=== PATIENT | female | born 1955 | race American Indian/Alaskan Native ===

== ENCOUNTER 2017-07-14 06:57 | Day surgery (SDC) | payer MEDICARE ==
[2017-07-14] MEDS: Lactated Ringer's 500 ML IV ONE ×2 (10:12→10:56)
[2017-07-14] MEDS ORDERED: Propofol 10 mg/ml Inj (20 ML) ONE (10:17)
[2017-07-14] MEDS ORDERED: Lactated Ringer's 500 ML IV SCH (10:30)
[2017-07-14] MEDS ORDERED: Etomidate 20 mg/10ml Inj IV ONE (10:45)
[2017-07-14] MEDS ORDERED: ePHEDrine 50 mg/ml Inj ONE (10:47)
[2017-07-14 11:21] VITALS: O2SAT 100
[2017-07-14 14:06] VITALS: BP 121/79; PULSE 79; RESP 18; TEMP 97.2
== END 2017-07-14 12:20 | disposition home or self-care (01) ==
LOC: C.ENDO 06:57
PROVIDERS: ATTEND Internal Medicine Gastroenterology
DX: D12.0 Benign neoplasm of cecum (principal); R63.4 Abnormal weight loss; D12.5 Benign neoplasm of sigmoid colon; K44.9 Diaphragmatic hernia without obstruction or gangrene; K29.50 Unspecified chronic gastritis without bleeding; D12.4 Benign neoplasm of descending colon

== ENCOUNTER 2018-05-22 20:02 | Inpatient (IN) | payer MEDICARE ==
--- NOTE | 2018-05-22 22:04 | C.PDOC ---
History Of Present Illness 62 y/o female presents to ED for complaints of left foot swelling that began 2 weeks ago. Patient states the swelling has gradually worsened. Patient states she has been soaking if with epsom salt with no relief. Denies any other physical complaints. Time Seen by Provider: 05/22/18 21:58 Chief Complaint (Nursing): Lower Extremity Problem/Injury History Per: Patient History/Exam Limitations: no limitations Onset/Duration Of Symptoms: Days (14) Current Symptoms Are (Timing): Still Present Recent travel outside of the [place]: No Past Medical History Reviewed: Historical Data, Nursing Documentation, Vital Signs Vital Signs: Last Vital Signs Temp 97.8 F 05/22/18 20:28 Pulse 86 05/22/18 20:28 Resp 16 05/22/18 20:28 BP 146/84 05/22/18 20:28 Pulse Ox 95 05/22/18 23:42 - Medical History PMH: Arthritis - [facility] Procedures PACKED CELL TRANSFUSION (12/05/14) VULVAR BIOPSY (12/05/14) Family History: States: Unknown Family Hx - Social History Hx Tobacco Use: No Hx Alcohol Use: Yes (socially) Hx Substance Use: No - Immunization History Hx Influenza Vaccination: No Hx Pneumococcal Vaccination: No Review Of Systems Constitutional: Negative for: Fever, Chills Gastrointestinal: Negative for: Nausea, Vomiting, Abdominal Pain, Diarrhea Skin: Positive for: Other (Left foot swelling). Negative for: Rash Neurological: Negative for: Weakness, Numbness Physical Exam - Physical Exam Appears: Well, Non-toxic, No Acute Distress Skin: Normal Color, Warm, Dry Head: Atraumatic, Normacephalic Eye(s): bilateral: Normal Inspection, PERRL, EOMI Oral Mucosa: Moist Chest: Symmetrical, No Tenderness Cardiovascular: Rhythm Regular, No Murmur Respiratory: Normal Breath Sounds, No Decreased Breath Sounds, No Rales, No Rhonchi, No Wheezing Extremity: Normal ROM, Other (Erythema and edema of left foot ) Neurological/Psych: Oriented x3, Normal Speech Gait: Steady ED Course And Treatment - Laboratory Results Result Diagrams: 05/22/18 23:50 05/22/18 23:50 Lab Interpretation: Normal ECG: Interpreted By Me ECG Rhythm: Sinus Rhythm ECG Interpretation: Normal Rate From EC O2 Sat by Pulse Oximetry: 95 (RA) Pulse Ox Interpretation: Normal - Radiology CXR: Interpreted by Me CXR Interpretation: Yes: No Acute Disease - Other Rad L foot X-Ray: Interpreted by Me (no fx/disloc, periosteal lifting, no SQ gas) Reevaluation Time: 00:17 Reassessment Condition: Improved - Physician Consult Information Outcome Of Conversation: 0015: d/w Dr. Hogan, Hospitalist covering pt's for Dr. Hermosillo, ok to admit. Medical Decision Making Medical Decision Making: Administered vamcomycin and piperacillin. Ordered EKG, blood work, CXR, and X-Ray of left foot. Disposition Doctor Will See Patient In The: Hospital Counseled Patient/Family Regarding: Studies Performed, Diagnosis - Disposition Disposition: HOSPITALIZED Disposition Time: 00:21 Condition: GOOD Forms: [email or web address] (Welsh) - Clinical Impression Clinical Impression: Cellulitis of left foot - Scribe Statement The provider has reviewed the documentation as recorded by the Amandaibshoaib Arellano All medical record entries made by the Scribe were at my direction and personally dictated by me. I have reviewed the chart and agree that the record accurately reflects my personal performance of the history, physical exam, medical decision making, and the department course for this patient. I have also personally directed, reviewed, and agree with the discharge instructions and disposition.
[2018-05-22] MEDS ORDERED: Piperacillin/Tazobact 3.375 gm 100 ML IV STA (22:37)
[2018-05-22] MEDS ORDERED: Vancomycin 1 GM 1 GM/250 ML BAG IV SCH (22:45)
[2018-05-22 23:53] LABS: BASO # 0.1 K/uL (0.0-0.2); HEMOGLOBIN 11.2 g/dL (11.0-16.0); LYMPH % 43.2 % (20.0-40.0); MEAN CELL VOLUME 93.5 fL (81.0-99.0); MEAN CORPUSCULAR HGB CONC 33.1 g/dL (33.0-37.0); MEAN PLATELET VOLUME 8.1 fL (7.2-11.7); MONO # 0.3 K/uL (0.0-0.8); MONO % 6.7 % (0.0-10.0); NEUT # 2.2 K/uL (1.8-7.0); NEUT % 47.1 % (50.0-75.0); RBC 3.61 Mil/uL (3.80-5.20); RED CELL DISTRIBUTION WIDTH 15.3 % (11.5-14.5); WHITE BLOOD COUNT 4.7 K/uL (4.8-10.8)
[2018-05-23] MEDS ORDERED: Piperacillin/Tazobact 3.375 gm 100 ML IVPB ONE (00:25)
[2018-05-23 00:31] LABS: ALB/GLOB RATIO 0.9 (1.0-2.1); ALBUMIN 4.4 g/dL (3.5-5.0); TROPONIN I 0.019 ng/mL (0.00-0.120)
[2018-05-23 01:23] VITALS: RESP 20
--- NOTE | 2018-05-23 01:38 | CP.PCM.HP ---
<Aisha CharltonEstefania - Last Filed: 05/23/18 05:09> History of Present Illness - History of Present Illness History of Present Illness: HPI: Patient is a 62 year old female with a history of anemia and hidradenitis, who presents to the ED with complaints of left foot and ankle swelling. The patient states her symptoms started two Sund ago, and started with left hallux pain. Ther left hallux was painful to touch, painful with movement, and was inflamed. She took Tylenol which relieved the pain. Four days later, she no longer had pain in her great toe, but noticed her left foot and ankle were swelling. She says she wakes up without swelling, but as the day progresses, the swelling worsens. The patient currently denies pain, difficulty walking, fevers, right lower extremity pain/swelling, and only admits to swelling. She denies trauma to the toe, foot, and ankle. Patient's daughter, Caitlin, is at bedside contributing to the history. Per the daughter, the patient slipped in the shower several months ago, but did not complain of pain or swelling at that time. Otherwise, denies trauma. Patient denies chest pain, sob, palpitations, abdominal pain, nausea, vomiting, fevers, headaches. PMD: Dr. 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 FamHx: mother- breast cancer, Alzheimer; father- DM and unknown type of cancer; sister- DM. SocHx: +tobacco use (1/2ppd x 50 years); patient states she drinks vodka on the weekends and denies daily drinking, will not quantify; per the daughter, the patient drinks daily and will drink a quart over 1-2 days if she has the money to buy it; denies drug use; lives with daughter, Caitlin. Allergies: Bactrim- hives Medications: denies, none Present on Admission - Present on Admission Any Indicators Present on Admission: No Review of Systems - Constitutional Constitutional: absent: Chills, Fever, Headache, Weakness - EENT Ears: absent: Dizziness - Cardiovascular Cardiovascular: Leg Edema. absent: Chest Pain, Dyspnea, Palpitations, Rapid Heart Rate - Respiratory Respiratory: absent: Cough, Dyspnea - Gastrointestinal Gastrointestinal: absent: Abdominal Pain, Constipation, Diarrhea, Nausea, Vomiting - Genitourinary Genitourinary: absent: Dysuria, Hematuria, Pyuria - Musculoskeletal Musculoskeletal: absent: Abnormal Gait - Integumentary Integumentary: Swelling (left foot and ankle) - Neurological Neurological: absent: Dizziness, Frequent Falls, Headaches Past Patient History - Past Medical History & Family History Past Medical History?: No - Past Social History Smoking Status: Light Smoker < 10 Cigarettes Daily - CARDIAC Hx Cardiac Disorders: No - PULMONARY Hx Respiratory Disorders: No - NEUROLOGICAL Hx Neurological Disorder: No - HEENT Hx HEENT Problems: No - RENAL Hx Chronic Kidney Disease: No - ENDOCRINE/METABOLIC Hx Endocrine Disorders: No - HEMATOLOGICAL/ONCOLOGICAL Hx Blood Disorders: No - INTEGUMENTARY Hx Dermatological Problems: No - MUSCULOSKELETAL/RHEUMATOLOGICAL Hx Arthritis: Yes - GASTROINTESTINAL Hx Gastrointestinal Disorders: No - GENITOURINARY/GYNECOLOGICAL Hx Genitourinary Disorders: No - PSYCHIATRIC Hx Substance Use: No - SURGICAL HISTORY Hx Surgeries: Yes Other/Comment: HIDRADENITIS OPERATION ON VULVA - ANESTHESIA Hx Anesthesia: Yes Hx Anesthesia Reactions: No Hx Malignant Hyperthermia: No Meds Allergies/Adverse Reactions: Allergies Allergy/AdvReac Type Severity Reaction Status Date / Time sulfamethoxazole Allergy Verified 05/22/18 20:38 [From Bactrim] trimethoprim [From Bactrim] Allergy Verified 05/22/18 20:38 Physical Exam - Constitutional Appears: No Acute Distress - Head Exam Head Exam: NORMAL INSPECTION - Eye Exam Eye Exam: EOMI, PERRL - ENT Exam ENT Exam: Mucous Membranes Moist - Respiratory Exam Respiratory Exam: Clear to Auscultation Bilateral, NORMAL BREATHING PATTERN. absent: Rales, Rhonchi, Wheezes, Respiratory Distress - Cardiovascular Exam Cardiovascular Exam: REGULAR RHYTHM, +S1, +S2 - GI/Abdominal Exam GI & Abdominal Exam: Normal Bowel Sounds, Soft. absent: Distended, Firm, Guarding, Tenderness Additional comments: well healed scar left abdomen s/p colostomy & hidradenitis surgery - Extremities Exam Extremities exam: Positive for: full ROM, pedal edema (left dorsal aspect of foot and ankle), pedal pulses present (Right foot; left foot- faint due to edema ). Negative for: tenderness Additional comments: 5/5 strength intact and sensation intact b/l; no erythematous changes (mild discoloration on left hallux, but not erythematous); equal temperatures bilaterally- warm; no pitting edema in RLE; no lesions noted on LE b/l. - Neurological Exam Neurological exam: Alert, Oriented x3 - Psychiatric Exam Psychiatric exam: Normal Affect, Normal Mood - Skin Skin Exam: Dry, Intact, Warm Results - Vital Signs Recent Vital Signs: Last Vital Signs Temp 97.8 F 05/23/18 01:22 Pulse 63 05/23/18 01:22 Resp 20 05/23/18 01:22 BP 150/89 05/23/18 01:22 Pulse Ox 100 05/23/18 01:22 - Labs Result Diagrams: 05/22/18 23:50 05/22/18 23:50 Labs: Laboratory Results - last 24 hr 05/22/18 05/22/18 23:50 23:50 WBC 4.7 L RBC 3.61 L Hgb 11.2 Hct 33.8 L MCV 93.5 MCH 31.0 MCHC 33.1 RDW 15.3 H Plt Count 317 MPV 8.1 Neut % (Auto) 47.1 L Lymph % (Auto) 43.2 H [place] % (Auto) 6.7 Eos % (Auto) 1.0 Baso % (Auto) 2.0 Neut # (Auto) 2.2 Lymph # (Auto) 2.0 [place] # (Auto) 0.3 Eos # (Auto) 0.0 Baso # (Auto) 0.1 Sodium 146 Potassium 5.8 H Chloride 114 H Carbon Dioxide 17 L Anion Gap 21 H BUN 45 H Creatinine 1.8 H Est GFR ( Amer) 34 Est GFR (Non-Af Amer) 28 Random Glucose 81 Calcium 9.0 Total Bilirubin 0.9 AST 49 H ALT 15 Alkaline Phosphatase 117 Troponin I 0.0190 NT-Pro-B Natriuret Pep 632 Total Protein 9.3 H Albumin 4.4 Globulin 4.9 H Albumin/Globulin Ratio 0.9 L Assessment & Plan (1) Swelling of left foot Assessment and Plan: Left foot edema Cellulitis? Secondary to trauma? Gout? Afebrile, no leukocytosis, no bandemia Xrays: f/u Doppler of LLE: f/u Blood cx: f/u Uric acid: f/u Medications: * In the ED, was given Vanco and Zosyn once * Continue zosyn 2.25g IV Q8h * NS@100mls/hr Status: Acute (2) Acute kidney injury Assessment and Plan: At admission, BUN 45, Cr 1.8; Patient has had elevated BUN at previous admissions Started IV hydration, NS@100mls/hr Follow up morning labs Continue to monitor Status: Acute (3) Hyperkalemia Assessment and Plan: At admission K+ 5.8 Hemolyzed specimen EKG: NSR; no T wave changes Follow up morning labs and continue to monitor Status: Acute (4) Prophylactic measure Assessment and Plan: DVT: no SCDs due to edema and possible cellulitis; heparin 5000u sc q8h GI: not indicated Heart healthy diet Status: Acute <Daniel Hogan - Last Filed: 05/23/18 06:44> Results - Vital Signs Recent Vital Signs: Last Vital Signs Temp 97.4 F L 05/23/18 01:48 Pulse 72 05/23/18 01:48 Resp 20 05/23/18 01:48 BP 149/87 05/23/18 01:48 Pulse Ox 97 05/23/18 01:48 - Labs Result Diagrams: 05/22/18 23:50 05/22/18 23:50 Labs: Laboratory Results - last 24 hr 05/22/18 05/22/18 23:50 23:50 WBC 4.7 L RBC 3.61 L Hgb 11.2 Hct 33.8 L MCV 93.5 MCH 31.0 MCHC 33.1 RDW 15.3 H Plt Count 317 MPV 8.1 Neut % (Auto) 47.1 L Lymph % (Auto) 43.2 H [place] % (Auto) 6.7 Eos % (Auto) 1.0 Baso % (Auto) 2.0 Neut # (Auto) 2.2 Lymph # (Auto) 2.0 [place] # (Auto) 0.3 Eos # (Auto) 0.0 Baso # (Auto) 0.1 Sodium 146 Potassium 5.8 H Chloride 114 H Carbon Dioxide 17 L Anion Gap 21 H BUN 45 H Creatinine 1.8 H Est GFR ( Amer) 34 Est GFR (Non-Af Amer) 28 Random Glucose 81 Calcium 9.0 Total Bilirubin 0.9 AST 49 H ALT 15 Alkaline Phosphatase 117 Troponin I 0.0190 NT-Pro-B Natriuret Pep 632 Total Protein 9.3 H Albumin 4.4 Globulin 4.9 H Albumin/Globulin Ratio 0.9 L Assessment & Plan - Date & Time Date: 05/23/18 (I have seen and examined the patient. I agree with the findings and plan of care as documented by Dr. Charlton. Patient with foot swelling. Suspicious for cellulitis. Vanco and Zosyn given in ED. Continue Zosyn. Denies history of diabetes or neuropathy. Check foot xray. Also with acute kidney injury. Hyperkalemia. May be secondary to dehydration. IVF. Recheck BMP in AM. Monitor for acute changes.) Time: 06:42 Attending/Attestation - Attestation I have personally seen and examined this patient.: Yes I have fully participated in the care of the patient.: Yes I have reviewed all pertinent clinical information: Yes
[2018-05-23] MEDS ORDERED: Sodium Chloride 0.9% 1,000 ML IV SCH (01:45)
[2018-05-23] MEDS ORDERED: Vancomycin 1 gm/NS 200 ml 1 GM/200 ML BAG IVPB SCH ×2 (02:00→03:00)
[2018-05-23] MEDS ORDERED: Piperacillin/Tazobact 2.25 GM in Sodium Chloride 100 ML IVPB SCH (02:00)
[2018-05-23] MEDS: Piperacillin/Tazobact 2.25 GM in Sodium Chloride 100 ML IVPB SCH ×3 (06:38→22:27)
[2018-05-23 07:36] LABS: BASO # 0.1 K/uL (0.0-0.2); BASO % 1.5 % (0.0-2.0); EOS # 0.1 K/uL (0.0-0.7); EOS % 1.5 % (0.0-4.0); HEMOGLOBIN 10.4 g/dL (11.0-16.0); LYMPH # 1.7 K/uL (1.0-4.3); LYMPH % 31.4 % (20.0-40.0); MEAN CELL VOLUME 92.6 fL (81.0-99.0); MEAN CORPUSCULAR HGB CONC 33.5 g/dL (33.0-37.0); MEAN PLATELET VOLUME 7.9 fL (7.2-11.7); MONO # 0.4 K/uL (0.0-0.8); MONO % 7.8 % (0.0-10.0); NEUT # 3.1 K/uL (1.8-7.0); NEUT % 57.8 % (50.0-75.0); NRBC % 0.1 % (0.0-2.0); RBC 3.36 Mil/uL (3.80-5.20); RED CELL DISTRIBUTION WIDTH 14.7 % (11.5-14.5); WHITE BLOOD COUNT 5.3 K/uL (4.8-10.8)
[2018-05-23 07:56] LABS: ALBUMIN 4.5 g/dL (3.5-5.0); CALCIUM 9.6 mg/dl (8.6-10.4)
--- NOTE | 2018-05-23 10:30 | RAD ---
HISTORY: SOB COMPARISON: No prior. TECHNIQUE: Chest PA and lateral FINDINGS: LUNGS: No active pulmonary disease. PLEURA: No significant pleural effusion identified. No pneumothorax apparent. CARDIOVASCULAR: Cardiomediastinal silhouette prominent. OSSEOUS STRUCTURES: Degenerative changes. VISUALIZED UPPER ABDOMEN: Normal. OTHER FINDINGS: None. IMPRESSION: No active disease.
--- NOTE | 2018-05-23 10:45 | RAD ---
PROCEDURE: Left Foot Radiographs. HISTORY: L foot pain/swelling x 2 weeks COMPARISON: None. FINDINGS: BONES: No acute fracture. No periosteal reaction. JOINTS: Unremarkable. SOFT TISSUES: Forefoot soft tissue swelling OTHER FINDINGS: None. IMPRESSION: No demonstrated fracture, dislocation or evidence of periosteal reaction. Distal forefoot soft tissue swelling.
[2018-05-23 11:28] LABS: URIC ACID 9.7 mg/dL (2.2-7.5)
--- NOTE | 2018-05-23 11:28 | VASCLAB ---
PROCEDURE: Left Lower Extremity Venous Duplex Exam. HISTORY: Swelling PRIORS: None. TECHNIQUE: Left common femoral, femoral, popliteal and posterior tibial, peroneal and great saphenous veins were evaluated. Flow was assessed with color Doppler, compressibility, assessment of phasic flow and augmentation response. Report prepared by KERMIT León FINDINGS: LEFT: 1. Common Femoral Vein: 1.1. Compressibility - Fully compressible: Thrombus - None : Flow - Phasic: Augmentation -Normal: Reflux - None. 2. Femoral Vein: 2.1. Compressibility - Fully compressible: Thrombus - None: Flow - Phasic: Augmentation -Normal: Reflux - None. 3. Popliteal Vein: 3.1. Compressibility - Fully compressible: Thrombus - None: Flow - Phasic: Augmentation -Normal: Reflux - None. 4. Posterior Tibial Vein: 4.1. Compressibility - Fully compressible: Thrombus - None: Flow - Phasic: Augmentation -Normal: Reflux - None. 5. Peroneal Vein: 5.1. Compressibility - Fully compressible: Thrombus - None: Flow - Phasic: Augmentation -Normal: Reflux - None. 6. Great Saphenous Vein: 6.1. Compressibility - Fully compressible: Thrombus - None: Flow - Phasic: Augmentation - Normal: Reflux - None. OTHER FINDINGS: IMPRESSION: No evidence of deep or superficial vein thrombosis of the left lower extremity with excellent venous flow. Normal valve function noted of the left side. Normal venous flow noted in the right common femoral vein.
--- NOTE | 2018-05-23 13:36 | CP.PCM.PN ---
<Merced Tovar - Last Filed: 05/23/18 15:30> Subjective - Date & Time of Evaluation Date of Evaluation: 05/23/18 Time of Evaluation: 13:33 - Subjective Subjective: PGY-[address] Patel. Patient was seen and examined today at bedside. Nurse reports no overnight events. Patient describes no new acute problems. Denies chest pain, shortness of breath, abdominal pain, nausea, vomiting, constipation, diarrhea. Objective - Vital Signs/Intake and Output Vital Signs (last 24 hours): Temp Pulse Resp BP Pulse Ox 98.2 F 81 20 152/80 H 97 05/23/18 08:56 05/23/18 08:56 05/23/18 08:56 05/23/18 08:56 05/23/18 08:56 Intake and Output: 05/23/18 05/23/18 06:59 18:59 Intake Total 525 Balance 525 - Medications Medications: Current Medications Heparin Sodium (Porcine) (Heparin) 5,000 units SC Q8 [facility] Last Admin: 05/23/18 06:35 Dose: 5,000 units Piperacillin Sod/Tazobactam (Sod 2.25 gm/ Sodium Chloride) 100 mls @ 200 mls/ hr IVPB Q8H [facility] PRN Reason: Protocol Last Admin: 05/23/18 06:38 Dose: 200 mls/hr Vancomycin/Sodium Chloride (Vancomycin 1 Gm/Ns 200 Ml) 1 gm in 200 mls @ 133 mls/hr IVPB STAT [facility] PRN Reason: Protocol Stop: 05/28/18 03:01 Last Admin: 05/23/18 02:54 Dose: 133 mls/hr Sodium Chloride (Sodium Chloride 0.9%) 1,000 mls @ 100 mls/hr IV .Q10H [facility] Pneumococcal Polyvalent Vaccine (Pneumovax 23 Vaccine) 0.5 ml IM .ONCE ONE Stop: 05/25/18 11:01 - Labs Labs: 05/23/18 07:26 05/23/18 07:26 - Constitutional Appears: Well, No Acute Distress - Head Exam Head Exam: ATRAUMATIC, NORMAL INSPECTION, NORMOCEPHALIC - Eye Exam Eye Exam: EOMI, Normal appearance, PERRL - ENT Exam ENT Exam: Mucous Membranes Moist, Normal Exam - Respiratory Exam Respiratory Exam: Clear to Ausculation Bilateral, NORMAL BREATHING PATTERN - Cardiovascular Exam Cardiovascular Exam: REGULAR RHYTHM, +S1, +S2. absent: Murmur - GI/Abdominal Exam GI & Abdominal Exam: Soft, Normal Bowel Sounds. absent: Tenderness - Extremities Exam Extremities Exam: Full ROM, Normal Capillary Refill, Normal Inspection. absent : Joint Swelling, Pedal Edema Additional comments: except left big toe. erythematous and swollen - Neurological Exam Neurological Exam: Alert, Awake, CN II-XII Intact, Normal Gait, Oriented x3 - Psychiatric Exam Psychiatric exam: Normal Affect, Normal Mood - Skin Skin Exam: Dry, Intact, Normal Color, Warm Additional comments: Left hallux warm, but not hot. Skin otherwise cool to touch. Assessment and Plan - Assessment and Plan (Free Text) Plan: (1) Swelling of left foot Assessment and Plan: Left foot edema Afebrile, no leukocytosis, no bandemia Cellulitis? Secondary to trauma? Gout? Xrays: neg for fracture, dislocation, evidence of periosteal reaction. distal forefoot soft tissue swelling. Doppler of LLE: fully compressible veins along left side. no evidence of deep or superficial vein thrombosis of the lower left extremity with excellent venous flow. normal valve function noted of left side. Normal venous flow noted in the right common femoral vein. Blood cx: f/u, collected, still pending Uric acid: 9.7. repeat for confirmation. Medications: * Continue Zosyn 2.25g IV Q8h * NS@100mls/hr Status: Acute (2) Acute kidney injury Assessment and Plan: Patient has had elevated BUN at previous admissions Continue IV hydration, NS@100mls/hr BUN: 36 today, 45 on admission. Cr: 1.4 today, 1.8 on admission Follow up morning labs Continue to monitor Status: Acute (3) Hyperkalemia Assessment and Plan: resolved. Morning K 4.1. Continue to draw morning labs to monitor. At admission K+ 5.8 Hemolyzed specimen EKG: NSR; no T wave changes Status: Acute (4) Prophylactic measure Assessment and Plan: DVT: no SCDs due to edema and possible cellulitis; heparin 5000u sc q8h GI: not indicated Heart healthy diet Status: Acute Merced Tovar PGY-1. Case discussed with Dr. Patel. <Conrad Patel - Last Filed: 05/24/18 12:24> Objective - Vital Signs/Intake and Output Vital Signs (last 24 hours): Temp Pulse Resp BP Pulse Ox 98.1 F 71 20 159/89 H 99 05/24/18 08:23 05/24/18 08:23 05/24/18 08:23 05/24/18 08:23 05/24/18 08:23 Intake and Output: 05/24/18 05/24/18 06:59 18:59 Intake Total 1840 Balance 1840 - Medications Medications: Current Medications Heparin Sodium (Porcine) (Heparin) 5,000 units SC Q8 [facility] Last Admin: 05/24/18 05:16 Dose: 5,000 units Piperacillin Sod/Tazobactam (Sod 2.25 gm/ Sodium Chloride) 100 mls @ 200 mls/ hr IVPB Q8H [facility] PRN Reason: Protocol Last Admin: 05/24/18 06:05 Dose: 200 mls/hr Sodium Chloride (Sodium Chloride 0.9%) 1,000 mls @ 100 mls/hr IV .Q10H [facility] Last Admin: 05/24/18 11:21 Dose: Not Given Pneumococcal Polyvalent Vaccine (Pneumovax 23 Vaccine) 0.5 ml IM .ONCE ONE Stop: 05/25/18 11:01 - Labs Labs: 05/24/18 06:51 05/24/18 06:51 Attending/Attestation - Attestation I have personally seen and examined this patient.: Yes I have fully participated in the care of the patient.: Yes I have reviewed all pertinent clinical information, including history, physical exam and plan: Yes Notes (Text): seen and examined by me 1.cellulitis-Pain and swelling resolved unlikely gout,Denies history of gout,has history of arthritis,no fever 2.Acute renal failure Plan discussed with the patient,continue hydration,follow cultures,antibiotics I agree with the resident's documentation
[2018-05-23] MEDS: Sodium Chloride 0.9% 1,000 ML IV SCH (16:34)
[2018-05-23 20:18] LABS: SQUAMOUS EPITHIAL < 1 /hpf (0-5); URINE BACTERIA RARE (<OCC); URINE BILIRUBIN NEGATIVE (NEGATIVE); URINE BLOOD NEGATIVE (NEGATIVE); URINE CLARITY Clear (Clear); URINE COLOR Straw (YELLOW); URINE GLUCOSE (UA) NORMAL (Normal); URINE LEUKOCYTE ESTERASE NEG Leu/uL (Negative); URINE PROTEIN NEGATIVE (NEGATIVE); URINE UROBILINOGEN NORMAL mg/dL (0.2-1.0)
--- NOTE | 2018-05-23 23:21 | CARD ---
APPROVED REPORT EKG Measurement Heart [id number] <Conclusion> Normal sinus rhythm Normal ECG
[2018-05-24] MEDS: Sodium Chloride 0.9% 1,000 ML IV SCH ×3 (05:15→11:21)
[2018-05-24] MEDS: Piperacillin/Tazobact 2.25 GM in Sodium Chloride 100 ML IVPB SCH (06:05)
[2018-05-24 06:59] LABS: BASO # 0.1 K/uL (0.0-0.2); BASO % 1.1 % (0.0-2.0); EOS # 0.1 K/uL (0.0-0.7); EOS % 1.8 % (0.0-4.0); HEMOGLOBIN 10.8 g/dL (11.0-16.0); LYMPH # 1.4 K/uL (1.0-4.3); LYMPH % 27.4 % (20.0-40.0); MEAN CORPUSCULAR HEMOGLOBIN 30.8 pg (27.0-31.0); MEAN CORPUSCULAR HGB CONC 33.5 g/dL (33.0-37.0); MEAN PLATELET VOLUME 7.8 fL (7.2-11.7); MONO # 0.5 K/uL (0.0-0.8); MONO % 10.7 % (0.0-10.0); NEUT # 2.9 K/uL (1.8-7.0); RBC 3.52 Mil/uL (3.80-5.20); RED CELL DISTRIBUTION WIDTH 14.7 % (11.5-14.5)
[2018-05-24 07:51] LABS: ALBUMIN 4.1 g/dL (3.5-5.0); ALT/SGPT 20 U/L (9-52); AST/SGOT 30 U/L (14-36); BLOOD UREA NITROGEN 25 mg/dL (7-17); CALCIUM 9.3 mg/dl (8.6-10.4); GFR AFRICAN-AMERICAN > 60; GFR NON-AFRICAN AMERICAN 50; URIC ACID 6.9 mg/dL (2.2-7.5)
[2018-05-24 08:24] VITALS: BP 159/89; PULSE 71; TEMP 98.1; O2SAT 99
--- NOTE | 2018-05-24 09:08 | CP.PCM.DIS ---
<Conrad Patel - Last Filed: 05/24/18 12:24> Provider - Provider Date of Admission: 05/23/18 00:21 Attending physician: Conrad Patel MD Hospital Course - Lab Results Lab Results: Micro Results 05/23/18 00:30 Blood Blood Culture - Preliminary Staphylococcus Sp Coag Neg 05/23/18 00:30 Blood Gram Stain - Final 05/23/18 01:00 Blood S.aureus & Coag-Neg Staph PNA FISH - Final 05/23/18 01:00 Blood Blood Culture - Preliminary Staphylococcus Sp Coag Neg 05/23/18 01:00 Blood Gram Stain - Final Most Recent Lab Values WBC 5.0 K/uL (4.8-10.8) 05/24/18 06:51 RBC 3.52 Mil/uL (3.80-5.20) L 05/24/18 06:51 Hgb 10.8 g/dL (11.0-16.0) L 05/24/18 06:51 Hct 32.4 % (34.0-47.0) L 05/24/18 06:51 MCV 92.0 fL (81.0-99.0) 05/24/18 06:51 MCH 30.8 pg (27.0-31.0) 05/24/18 06:51 MCHC 33.5 g/dL (33.0-37.0) 05/24/18 06:51 RDW 14.7 % (11.5-14.5) H 05/24/18 06:51 Plt Count 321 K/uL (130-400) 05/24/18 06:51 MPV 7.8 fL (7.2-11.7) 05/24/18 06:51 Neut % (Auto) 59.0 % (50.0-75.0) 05/24/18 06:51 Lymph % (Auto) 27.4 % (20.0-40.0) 05/24/18 06:51 [place] % (Auto) 10.7 % (0.0-10.0) H 05/24/18 06:51 Eos % (Auto) 1.8 % (0.0-4.0) 05/24/18 06:51 Baso % (Auto) 1.1 % (0.0-2.0) 05/24/18 06:51 Neut # (Auto) 2.9 K/uL (1.8-7.0) 05/24/18 06:51 Lymph # (Auto) 1.4 K/uL (1.0-4.3) 05/24/18 06:51 [place] # (Auto) 0.5 K/uL (0.0-0.8) 05/24/18 06:51 Eos # (Auto) 0.1 K/uL (0.0-0.7) 05/24/18 06:51 Baso # (Auto) 0.1 K/uL (0.0-0.2) 05/24/18 06:51 Sodium 142 mmol/L (132-148) 05/24/18 06:51 Potassium 4.3 mmol/L (3.6-5.2) 05/24/18 06:51 Chloride 107 mmol/L (98-107) 05/24/18 06:51 Carbon Dioxide 23 mmol/L (22-30) 05/24/18 06:51 Anion Gap 17 (10-20) 05/24/18 06:51 BUN 25 mg/dL (7-17) H 05/24/18 06:51 Creatinine 1.1 mg/dL (0.7-1.2) 05/24/18 06:51 Est GFR ( Amer) > 60 05/24/18 06:51 Est GFR (Non-Af Amer) 50 05/24/18 06:51 Random Glucose 99 mg/dL (65-105) 05/24/18 06:51 Uric Acid 6.9 mg/dL (2.2-7.5) 05/24/18 06:51 Calcium 9.3 mg/dl (8.6-10.4) 05/24/18 06:51 Total Bilirubin 1.0 mg/dL (0.2-1.3) 05/24/18 06:51 AST 30 U/L (14-36) 05/24/18 06:51 ALT 20 U/L (9-52) 05/24/18 06:51 Alkaline Phosphatase 102 U/L (38-126) 05/24/18 06:51 Troponin I 0.0190 ng/mL (0.00-0.120) 07/02/18 23:50 NT-Pro-B Natriuret Pep 632 pg/mL (0-900) 05/22/18 23:50 Total Protein 8.3 g/dL (6.3-8.3) 05/24/18 06:51 Albumin 4.1 g/dL (3.5-5.0) 05/24/18 06:51 Globulin 4.2 gm/dL (2.2-3.9) H 05/24/18 06:51 Albumin/Globulin Ratio 1.0 (1.0-2.1) 05/24/18 06:51 Urine Color Straw (YELLOW) 05/23/18 20:04 Urine Clarity Clear (Clear) 05/23/18 20:04 Urine pH 5.0 (5.0-8.0) 05/23/18 20:04 Ur Specific [place] 1.011 (1.003-1.030) 05/23/18 20:04 Urine Protein Negative mg/dL (NEGATIVE) 05/23/18 20:04 Urine Glucose (UA) Normal mg/dL (Normal) 05/23/18 20:04 Urine Ketones Negative mg/dL (NEGATIVE) 05/23/18 20:04 Urine Blood Negative (NEGATIVE) 05/23/18 20:04 Urine Nitrate Negative (NEGATIVE) 05/23/18 20:04 Urine Bilirubin Negative (NEGATIVE) 05/23/18 20:04 Urine Urobilinogen Normal mg/dL (0.2-1.0) 05/23/18 20:04 Ur Leukocyte Esterase Neg Blake/uL (Negative) 05/23/18 20:04 Urine WBC (Auto) < 1 /hpf (0-5) 05/23/18 20:04 Ur Squamous Epith Cells < 1 /hpf (0-5) 05/23/18 20:04 Urine Bacteria Rare (<OCC) 05/23/18 20:04 Ur Random Sodium 160 mmol/L 05/23/18 20:04 Alcohol, Quantitative 30 mg/dl (0-10) H 05/23/18 07:26 Discharge Plan - Discharge Medications Prescriptions: Clindamycin [Cleocin] 300 mg PO QID #20 cap - Follow Up Plan Condition: GOOD Disposition: HOME/ ROUTINE Instructions: Cellulitis (DC), Cellulitis (GEN) Additional Instructions: Patient is stable for discharge home as per Dr. Patel. Patient should resume all home medications. Patient should additionally take the medication below as prescribed: Clindamycin 300mg by mouth 4 times a day Patient should make an appointment with her primary care doctor for follow up within the next week. Patient should return to ED immediately if symptoms return of worsen. Instructions discussed with patient who understood and agreed. Referrals: Kala Hermosillo MD [Staff Provider] - Attending/Attestation - Attestation I have personally seen and examined this patient.: Yes I have fully participated in the care of the patient.: Yes I have reviewed all pertinent clinical information, including history, physical exam and plan: Yes Notes (Text): seen and examined,denies pain,She wants to go home.No fever,no nausea,no vomting ,denies foot pain Her cellulitis resolved,Creatinine improved Her one bottle grew coaugulase negative staph by PNA fish ITs likely contamination. I will repeat blood cultures drawan before she leaves and asked to follow Patient's number [phone] daughter's number [phone] Jerri was asked to call us we will follow her culture report on Tuesday Plan discussed with the resident and the patient in detail d/c on clindamycin <Merced Tovar Y - Last Filed: 05/24/18 17:05> Provider - Provider Date of Admission: 05/23/18 00:21 Attending physician: Conrad Patel MD Time Spent in preparation of Discharge (in minutes): 60 Hospital Course - Lab Results Lab Results: Micro Results 05/23/18 00:30 Blood Blood Culture - Preliminary NO GROWTH AFTER 24 HOURS 05/23/18 00:30 Blood Gram Stain - Preliminary 05/23/18 01:00 Blood S.aureus & Coag-Neg Staph PNA FISH - Final 05/23/18 01:00 Blood Blood Culture - Preliminary Gram Positive Cocci 05/23/18 01:00 Blood Gram Stain - Final Most Recent Lab Values WBC 5.0 K/uL (4.8-10.8) 05/24/18 06:51 RBC 3.52 Mil/uL (3.80-5.20) L 05/24/18 06:51 Hgb 10.8 g/dL (11.0-16.0) L 05/24/18 06:51 Hct 32.4 % (34.0-47.0) L 05/24/18 06:51 MCV 92.0 fL (81.0-99.0) 05/24/18 06:51 MCH 30.8 pg (27.0-31.0) 05/24/18 06:51 MCHC 33.5 g/dL (33.0-37.0) 05/24/18 06:51 RDW 14.7 % (11.5-14.5) H 05/24/18 06:51 Plt Count 321 K/uL (130-400) 05/24/18 06:51 MPV 7.8 fL (7.2-11.7) 05/24/18 06:51 Neut % (Auto) 59.0 % (50.0-75.0) 05/24/18 06:51 Lymph % (Auto) 27.4 % (20.0-40.0) 05/24/18 06:51 Victoria % (Auto) 10.7 % (0.0-10.0) H 05/24/18 06:51 Eos % (Auto) 1.8 % (0.0-4.0) 05/24/18 06:51 Baso % (Auto) 1.1 % (0.0-2.0) 05/24/18 06:51 Neut # (Auto) 2.9 K/uL (1.8-7.0) 05/24/18 06:51 Lymph # (Auto) 1.4 K/uL (1.0-4.3) 05/24/18 06:51 [place] # (Auto) 0.5 K/uL (0.0-0.8) 05/24/18 06:51 Eos # (Auto) 0.1 K/uL (0.0-0.7) 05/24/18 06:51 Baso # (Auto) 0.1 K/uL (0.0-0.2) 05/24/18 06:51 Sodium 142 mmol/L (132-148) 05/24/18 06:51 Potassium 4.3 mmol/L (3.6-5.2) 05/24/18 06:51 Chloride 107 mmol/L (98-107) 05/24/18 06:51 Carbon Dioxide 23 mmol/L (22-30) 05/24/18 06:51 Anion Gap 17 (10-20) 05/24/18 06:51 BUN 25 mg/dL (7-17) H 05/24/18 06:51 Creatinine 1.1 mg/dL (0.7-1.2) 05/24/18 06:51 Est GFR ( Amer) > 60 05/24/18 06:51 Est GFR (Non-Af Amer) 50 07 06:51 Random Glucose 99 mg/dL (65-105) 05/24/18 06:51 Uric Acid 6.9 mg/dL (2.2-7.5) 05/24/18 06:51 Calcium 9.3 mg/dl (8.6-10.4) 05/24/18 06:51 Total Bilirubin 1.0 mg/dL (0.2-1.3) 05/24/18 06:51 AST 30 U/L (14-36) 05/24/18 06:51 ALT 20 U/L (9-52) 05/24/18 06:51 Alkaline Phosphatase 102 U/L (38-126) 05/24/18 06:51 Troponin I 0.0190 ng/mL (0.00-0.120) 05/22/18 23:50 NT-Pro-B Natriuret Pep 632 pg/mL (0-900) 05/22/18 23:50 Total Protein 8.3 g/dL (6.3-8.3) 05/24/18 06:51 Albumin 4.1 g/dL (3.5-5.0) 05/24/18 06:51 Globulin 4.2 gm/dL (2.2-3.9) H 05/24/18 06:51 Albumin/Globulin Ratio 1.0 (1.0-2.1) 05/24/18 06:51 Urine Color Straw (YELLOW) 05/23/18 20:04 Urine Clarity Clear (Clear) 05/23/18 20:04 Urine pH 5.0 (5.0-8.0) 05/23/18 20:04 Ur Specific [place] 1.011 (1.003-1.030) 05/23/18 20:04 Urine Protein Negative mg/dL (NEGATIVE) 05/23/18 20:04 Urine Glucose (UA) Normal mg/dL (Normal) 05/23/18 20:04 Urine Ketones Negative mg/dL (NEGATIVE) 05/23/18 20:04 Urine Blood Negative (NEGATIVE) 05/23/18 20:04 Urine Nitrate Negative (NEGATIVE) 05/23/18 20:04 Urine Bilirubin Negative (NEGATIVE) 05/23/18 20:04 Urine Urobilinogen Normal mg/dL (0.2-1.0) 05/23/18 20:04 Ur Leukocyte Esterase Neg [place]/uL (Negative) 05/23/18 20:04 Urine WBC (Auto) < 1 /hpf (0-5) 05/23/18 20:04 Ur Squamous Epith Cells < 1 /hpf (0-5) 05/23/18 20:04 Urine Bacteria Rare (<OCC) 05/23/18 20:04 Ur Random Sodium 160 mmol/L 05/23/18 20:04 Alcohol, Quantitative 30 mg/dl (0-10) H 05/23/18 07:26 - Hospital Course Hospital Course: Patient is a 62 year old female with a history of anemia and hidradenitis, who presents to the ED with complaints of left foot and ankle swelling. The patient states her symptoms started two Sundays ago, and started with left hallux pain. Ther left hallux was painful to touch, painful with movement, and was inflamed. She took Tylenol which relieved the pain. Four days later, she no longer had pain in her great toe, but noticed her left foot and ankle were swelling. She says she wakes up without swelling, but as the day progresses, the swelling worsens. The patient currently denies pain, difficulty walking, fevers, right lower extremity pain/swelling, and only admits to swelling. She denies trauma to the toe, foot, and ankle. Patient's daughter, Caitlin, is at bedside contributing to the history. Per the daughter, the patient slipped in the shower several months ago, but did not complain of pain or swelling at that time. Otherwise, denies trauma. Patient denies chest pain, sob, palpitations, abdominal pain, nausea, vomiting, fevers, headaches. Patient came into the ED complaining left foot pain and swelling. Foot XR showed no fracture, dislocation, or evidence of periosteal reaction. It did show some distal forefoot soft tissue swelling and vancomycin was started empirically. CXR and EKG done in the ED were benign and unremarkable. Dopplers of the left leg showed good blood flow throughout without evidence of DVT. Uric acid also came back negative for possible gout. Fluids were given and morning labs were trended to make sure electrolytes and kidney function were within normal limits and functioning, respectively. Antibiotics were changed to Zosyn when cultures came back and the patient will be discharged on clindamycin as pain is gone and swelling has diminished. Patient is stable for discharge home as per Dr. Patel. Patient should resume all home medications. Patient should additionally take the medication below as prescribed: Clindamycin 300mg by mouth 4 times a day Patient should make an appointment with her primary care doctor for follow up within the next week. Patient should return to ED immediately if symptoms return of worsen. Instructions discussed with patient who understood and agreed. This is a summary of the hospital course. Please refer to EMR for more detailed information. - Date & Time of H&P Date of H&P: 05/24/18 Time of H&P: 09:53 Discharge Exam - Head Exam Head Exam: ATRAUMATIC, NORMAL INSPECTION, NORMOCEPHALIC - Eye Exam Eye Exam: EOMI, Normal appearance, PERRL - ENT Exam ENT Exam: Mucous Membranes Moist - Respiratory Exam Respiratory Exam: Clear to PA & Lateral, NORMAL BREATHING PATTERN. absent: Rales, Rhonchi, Wheezes - Cardiovascular Exam Cardiovascular Exam: REGULAR RHYTHM, +S1, +S2. absent: Systolic Murmur - GI/Abdominal Exam GI & Abdominal Exam: Normal Bowel Sounds, Soft. absent: Tenderness - Extremities Exam Additional comments: No tenderness, erythema at left hallux. Swelling diminished from admission size and patient walking comfortably on it. - Neurological Exam Neurological exam: Alert, CN II-XII Intact, Normal Gait, Oriented x3, Reflexes Normal - Psychiatric Exam Psychiatric exam: Normal Affect, Normal Mood - Skin Skin Exam: Dry, Intact, Normal Color, Warm
[2018-05-25] MEDS ORDERED: Pneumococcal 23-Valent Vaccine IM ONE (11:00)
== END 2018-05-24 14:42 | disposition home or self-care (01) | DRG 603 ==
LOC: C.ER 20:02 → C.6T 05-23 00:21
PROVIDERS: ADMIT Internal Medicine; ATTEND Internal Medicine
DX: L03.116 Cellulitis of left lower limb (principal); N17.9 Acute kidney failure, unspecified; E87.5 Hyperkalemia; M19.90 Unspecified osteoarthritis, unspecified site; F17.210 Nicotine dependence, cigarettes, uncomplicated; F10.10 Alcohol abuse, uncomplicated; Z88.1 Allergy status to other antibiotic agents

== ENCOUNTER 2018-10-28 15:53 | Inpatient (IN) | payer MEDICARE ==
--- NOTE | 2018-10-28 16:59 | C.PDOC ---
History Of Present Illness 63 year old female with a history of hidradenitis and multiple abscesses presents to the emergency department with complaints of a painful abscess to the left buttock for the last four days. Patient states that the abscess has been g rowing in size, and is becoming increasingly painful resulting in her inability to sit. Patient denies drainage, fever, abdominal pain, discharge, or bleeding. As per the patient's daughter, she requires surgical drainage every time these symptoms present. <Bianca Allen - Last Filed: 10/28/18 18:49> History Per: Patient, Family (daughter) History/Exam Limitations: no limitations Onset/Duration Of Symptoms: Days (4) Current Symptoms Are (Timing): Still Present Location Of Injury: Left: Buttock, Posterior: Buttock Quality Of Symptoms: Painful, Swollen. denies: Draining <Bianca Allen - Last Filed: 10/28/18 18:49> <Ny Parker - Last Filed: 10/29/18 00:08> Time Seen by Provider: 10/28/18 16:30 Chief Complaint (Nursing): Abnormal Skin Integrity Past Medical History Reviewed: Historical Data, Nursing Documentation, Vital Signs Vital Signs: Last Vital Signs Temp 98.3 F 10/28/18 16:15 Pulse 92 H 10/28/18 16:15 Resp 18 10/28/18 16:15 BP 144/81 10/28/18 16:15 Pulse Ox 96 10/28/18 16:15 - Medical History PMH: Anemia, Arthritis, HTN Other PMH: Hidradenitis Surgical History: No Surg Hx - [facility] Procedures PACKED CELL TRANSFUSION (12/05/14) VULVAR BIOPSY (12/05/14) Family History: States: No Known Family Hx - Social History Hx Tobacco Use: No Hx Alcohol Use: Yes (Occ.) Hx Substance Use: No - Immunization History Hx Influenza Vaccination: No Hx Pneumococcal Vaccination: No <Bianca Allen - Last Filed: 10/28/18 18:49> Vital Signs: Last Vital Signs Temp 98.3 F 10/28/18 16:15 Pulse 92 H 10/28/18 16:15 Resp 18 10/28/18 16:15 BP 144/81 10/28/18 16:15 Pulse Ox 96 10/28/18 18:50 - [facility] Procedures PACKED CELL TRANSFUSION (12/05/14) VULVAR BIOPSY (12/05/14) <Ny Parker - Last Filed: 10/29/18 00:08> Review Of Systems Constitutional: Negative for: Fever, Chills Gastrointestinal: Negative for: Abdominal Pain Skin: Positive for: Other (Painful mass. NO discharge. NO bleeding. ) <Bianca Allen - Last Filed: 10/28/18 18:49> Physical Exam - Physical Exam Appears: Non-toxic, In Acute Distress (uncomfortable) Skin: Warm, Dry Head: Atraumatic, Normacephalic Eye(s): bilateral: Normal Inspection, PERRL, EOMI Neck: Normal, Supple Chest: Symmetrical Cardiovascular: Rhythm Regular, No Murmur Respiratory: Normal Breath Sounds, No Rales, No Rhonchi, No Wheezing Rectal: No Blood Streaked Stool, Mass (5x5cm, erythematous, fluctuant pass to the left perirectal region), No Other (drainage) Extremity: Bilateral: Atraumatic, Normal Color And Temperature, Normal ROM Neurological/Psych: Oriented x3, Normal Speech <Bianca Allen - Last Filed: 10/28/18 18:49> ED Course And Treatment - Laboratory Results Result Diagrams: 10/28/18 17:04 10/28/18 17:04 Lab Interpretation: Abnormal O2 Sat by Pulse Oximetry: 96 (RA) Pulse Ox Interpretation: Normal <Bianca Allen Last Filed: 10/28/18 18:49> - Laboratory Results Result Diagrams: 10/28/18 17:04 10/28/18 17:04 - CT Scan/US CT abd/pelvis Other Rad Studies (CT/US): Read By Radiologist, Radiology Report Reviewed CT/US Interpretation: CT of the abdomen and pelvis without contrast. Clinical statement: Perirectal mass, pain. Technique: Multiple axial CT images were obtained from the base of the lungs to the floor of the pelvis utilizing 5 mm axial slices after administration of oral contrast. Coronal and sagittal reconstructions were also obtained. Comparison: None. Findings: Chest: The visualized lung bases are clear. Abdomen: The kidneys are normal in size bila terally. There is no evidence of hydronephrosis or nephrolithiasis. The liver, spleen, pancreas, gallbladder and adrenal glands are unremarkable. The aorta demonstrates normal caliber and contour, with mild atherosclerotic calcifications. There is no abdominal lymphadenopathy or ascites. Pelvis: The bowel is unremarkable, with no obstructive or inflammatory changes. The appendix is normal. The urinary bladder is within normal limits. There is no pelvic lymphadenopathy or ascites. The other pelvic structures appear unremarkable. There is mild inflammatory stranding with in the soft tissue density demonstrated in the posterior medial left gluteal region. No focal mass or fluid collection is identified however. Bones: There are no suspicious osseous abnormalities seen. Impression: 1. No focal mass or fluid collection demonstrated the perirectal region. 2. The visualized bowel appears u nremarkable. 3. Superficial soft tissue inflammatory stranding in the posterior medial left gluteal region. No focal mass or fluid collection is identified at the site. The findings are suspicious for cellulitis. 4. No evidence of hydronephrosis or nephrolithiasis. . Electronically signed on Oct 28, 2018 10:17:00 PM EST by: Howard Mace M.D., RED Certified By ABR & CBCCT. Fellowship Trained MRI and CT Specialist Progress Note: Pt was endorsed to me by Bianca GARCIA. Pt is a 63 year old female with Hx of multiple abscesses, presents with perirectal abscess for [address] scan to rule out perirectal abscess. Will re-jadiel pt. <Ny Parker - Last Filed: 10/29/18 00:08> Medical Decision Making Medical Decision Making: Mass to left buttocks, r.o perirectal abscess Plan: CT Pelvis Chemistry Bloodwork Morphine 2mg IVP Urinalysis Progress: 1800 Labs reviewed no leukocytosis or hyperglycemia. Abnormal renal function. Will order IV fluids and oral contrast 183 Page vice president diversity Raymond Motley and made aware of case. He states will await CT results 1844 Case signed out to DR Parker pending CT results, surgical consult and dispo <Bianca Allen - Last Filed: 10/28/18 18:49> Medical Decision Makin:25 - vice president network was paged and case was discussed. Patient does not have an abscess but will be admitted to Medicine for IV antibiotics.. On reeva luation patient had a cellulitic indurated mass on left buttock. 22:30 - Results of CT d/w pt. Plan to admit for iv abx, ivf. Patient agreeable w/POC. Case d/w Dr. Jack medicine classification clerk who accepts the patient for admission <Ny Parker - Last Filed: 10/29/18 00:08> Disposition - Disposition Disposition Time: 18:49 - POA Present On Arrival: None <Bianca Allen - Last Filed: 10/28/18 18:49> - Disposition Disposition Time: 22:30 <Ny Parker - Last Filed: 10/29/18 00:08> - Disposition Disposition: HOSPITALIZED Condition: STABLE - Clinical Impression Clinical Impression: Cellulitis of buttock, Dehydration, TOSHA (acute kidney injury), Anemia - PA / STEEL CHECKER / Resident Statement MD/DO has reviewed & agrees with the documentation as recorded. - Scribe Statement The provider has reviewed the documentation as recorded by the Scribe (Heladio Gonzalez) All medical record entries made by the Scribe were at my direction and personally dictated by me. I have reviewed the chart and agree that the record accurately reflects my personal performance of the history, physical exam, medical decision making, and the department course for this patient. I have also personally directed, reviewed, and agree with the discharge instructions and disposition. <Bianca Allen - Last Filed: 10/28/18 18:49> Physician Patient Turnover Patient Signed Over To: Ny Parker Handoff Comments: Pending CT, surgical consult and dispo <Bianca Allen - Last Filed: 10/28/18 18:49>
[2018-10-28 17:18] LABS: ALBUMIN 4.3 g/dL (3.5-5.0); CALCIUM 9.2 mg/dl (8.6-10.4)
[2018-10-28 17:21] LABS: BASO # 0.1 K/uL (0.0-0.2); BASO % 0.9 % (0.0-2.0); EOS # 0.1 K/uL (0.0-0.7); EOS % 0.9 % (0.0-4.0); LYMPH # 1.6 K/uL (1.0-4.3); LYMPH % 17.4 % (20.0-40.0); MEAN CELL VOLUME 92.6 fL (81.0-99.0); MEAN CORPUSCULAR HEMOGLOBIN 30.4 pg (27.0-31.0); MEAN CORPUSCULAR HGB CONC 32.8 g/dL (33.0-37.0); MONO # 0.9 K/uL (0.0-0.8); MONO % 10.1 % (0.0-10.0); NEUT # 6.3 K/uL (1.8-7.0); NEUT % 70.7 % (50.0-75.0); RBC 3.29 Mil/uL (3.80-5.20); RED CELL DISTRIBUTION WIDTH 15.6 % (11.5-14.5)
[2018-10-28 17:22] LABS: WHITE BLOOD COUNT 8.9 K/uL (4.8-10.8)
[2018-10-28] MEDS ORDERED: Sodium Chloride 0.9% 1,000 ML IV ONE (18:27)
[2018-10-28] MEDS ORDERED: Iohexol 240 (50 ml) PO ONE (18:29)
[2018-10-28] MEDS ORDERED: Sodium Chloride 0.9% 1,000 ML ONE (18:37)
[2018-10-28] MEDS ORDERED: Iohexol 240 (50 ml) ONE (18:37)
[2018-10-28 20:21] LABS: SQUAMOUS EPITHIAL < 1 /hpf (0-5); URINE BILIRUBIN NEGATIVE (NEGATIVE); URINE BLOOD NEGATIVE (NEGATIVE); URINE CLARITY Clear (Clear); URINE COLOR Straw (YELLOW); URINE GLUCOSE (UA) NORMAL (Normal); URINE LEUKOCYTE ESTERASE NEG Leu/uL (Negative); URINE PROTEIN NEGATIVE (NEGATIVE); URINE UROBILINOGEN NORMAL mg/dL (0.2-1.0)
[2018-10-28] MEDS: Sodium Chloride 0.9% 1,000 ML IV SCH ×2 (22:10→22:45)
[2018-10-28] MEDS ORDERED: Clindamycin 600mg/50ml NS 600 MG/50 ML BAG IVPB ONE (23:00)
[2018-10-29] MEDS: Sodium Chloride 0.9% 1,000 ML IV SCH ×3 (01:11→18:45)
[2018-10-29 08:45] LABS: BASO # 0.1 K/uL (0.0-0.2); BASO % 0.8 % (0.0-2.0); EOS % 0.5 % (0.0-4.0); HEMOGLOBIN 9.6 g/dL (11.0-16.0); LYMPH # 1.4 K/uL (1.0-4.3); LYMPH % 18.2 % (20.0-40.0); MEAN CORPUSCULAR HEMOGLOBIN 31.5 pg (27.0-31.0); MEAN CORPUSCULAR HGB CONC 33.4 g/dL (33.0-37.0); MEAN PLATELET VOLUME 8.3 fL (7.2-11.7); MONO # 1.1 K/uL (0.0-0.8); MONO % 13.8 % (0.0-10.0); NEUT # 5.2 K/uL (1.8-7.0); NEUT % 66.7 % (50.0-75.0); RBC 3.05 Mil/uL (3.80-5.20); RED CELL DISTRIBUTION WIDTH 15.6 % (11.5-14.5); WHITE BLOOD COUNT 7.8 K/uL (4.8-10.8)
[2018-10-29 08:47] LABS: MEAN CELL VOLUME 94.6 fL (81.0-99.0)
[2018-10-29 09:40] LABS: CALCIUM 8.8 mg/dl (8.6-10.4)
--- NOTE | 2018-10-29 10:55 | CT ---
Date of service: 10/28/2018 PROCEDURE: CT Abdomen and Pelvis with contrast HISTORY: perirectal mass and pain, r.o abscess COMPARISON: 12/05/2014. TECHNIQUE: CT scan of the abdomen and pelvis was performed without administration of intravenous contrast. Oral contrast was administered. Coronal and sagittal reformatted images were obtained. Contrast dose: Radiation dose: Total exam DLP = 245.51 mGy-cm. This CT exam was performed using one or more of the following dose reduction techniques: Automated exposure control, adjustment of the mA and/or kV according to patient size, and/or use of iterative reconstruction technique. FINDINGS: LOWER THORAX: There is subsegmental atelectasis in the right lateral lung base. The visualized left lung is clear. LIVER: Mild hepatomegaly and fatty liver. No gross lesion or ductal dilatation. GALLBLADDER AND BILE DUCTS: Well distended. Small gallstones. PANCREAS: Normal in size. No gross lesion or ductal dilatation. SPLEEN: Normal in size. ADRENALS: No discrete nodule. KIDNEYS AND URETERS: Normal in size and there is nonspecific perinephric fat stranding. No hydronephrosis. No solid mass. VASCULATURE: No aortic aneurysm. There are early aortic atherosclerotic calcifications present. BOWEL: The small bowel loops are normal in caliber. There are postsurgical changes in the splenic flexure. The colon is grossly normal in appearance. No bowel wall thickening or obstruction. APPENDIX: Normal appendix. PERITONEUM: No free fluid. No free air. LYMPH NODES: No enlarged lymph nodes. BLADDER: Well distended and normal in appearance. REPRODUCTIVE: The uterus is normal in size. BONES: No acute fracture. Within normal limits for the patient's age. OTHER FINDINGS: There is moderate soft tissue and subcutaneous inflammatory changes in the left paramedian gluteal region. No drainable fluid collection. IMPRESSION: No acute abdominal or pelvic abnormality. Suspect left paramedian gluteal cellulitis. No fluid collection. No evidence of chao rectal or discharge rectal fluid collection. A preliminary report was provided by [facility].
--- NOTE | 2018-10-29 20:10 | CP.PCM.HP ---
Past Patient History - Past Medical History & Family History Past Medical History?: No - Past Social History Smoking Status: Light Smoker < 10 Cigarettes Daily - CARDIAC Hx Hypertension: No - PULMONARY Hx Respiratory Disorders: No - NEUROLOGICAL Hx Neurological Disorder: No - HEENT Hx HEENT Problems: No - RENAL Hx Chronic Kidney Disease: No - ENDOCRINE/METABOLIC Hx Endocrine Disorders: No - HEMATOLOGICAL/ONCOLOGICAL Hx Anemia: Yes - INTEGUMENTARY Hx Dermatological Problems: Yes Other/Comment: hidradenitis - MUSCULOSKELETAL/RHEUMATOLOGICAL Hx Musculoskeletal Disorders: No Hx Falls: No - GASTROINTESTINAL Hx Gastrointestinal Disorders: No - GENITOURINARY/GYNECOLOGICAL Hx Genitourinary Disorders: No - PSYCHIATRIC Hx Psychophysiologic Disorder: No Hx Substance Use: No - SURGICAL HISTORY Hx Surgeries: Yes Other/Comment: HIDRADENITIS OPERATION ON VULVA - ANESTHESIA Hx Anesthesia: Yes Hx Anesthesia Reactions: No Hx Malignant Hyperthermia: No Meds Allergies/Adverse Reactions: Allergies Allergy/AdvReac Type Severity Reaction Status Date / Time sulfamethoxazole Allergy Verified 05/22/18 20:38 [From Bactrim] trimethoprim [From Bactrim] Allergy Verified 05/22/18 20:38 Results - Vital Signs Recent Vital Signs: Last Vital Signs Temp 98.7 F 10/29/18 15:00 Pulse 87 10/29/18 15:00 Resp 20 10/29/18 15:00 BP 102/62 10/29/18 15:00 Pulse Ox 96 10/29/18 15:00 - Labs Result Diagrams: 10/29/18 08:29 10/29/18 08:29 Labs: Laboratory Results - last 24 hr 10/28/18 10/29/18 10/29/18 20:16 08:29 08:29 WBC 7.8 RBC 3.05 L Hgb 9.6 L Hct 28.8 L MCV 94.6 D MCH 31.5 H MCHC 33.4 RDW 15.6 H Plt Count 263 MPV 8.3 Neut % (Auto) 66.7 Lymph % (Auto) 18.2 L [place] % (Auto) 13.8 H Eos % (Auto) 0.5 Baso % (Auto) 0.8 Neut # (Auto) 5.2 Lymph # (Auto) 1.4 [place] # (Auto) 1.1 H Eos # (Auto) 0.0 Baso # (Auto) 0.1 Sodium 136 Potassium 5.0 Chloride 108 H Carbon Dioxide 18 L Anion Gap 15 BUN 48 H Creatinine 1.2 Est GFR ( Amer) 55 Est GFR (Non-Af Amer) 45 Random Glucose 88 Calcium 8.8 Urine Color Straw Urine Clarity Clear Urine pH 5.0 Ur Specific [place] 1.006 Urine Protein Negative Urine Glucose (UA) Normal Urine Ketones Negative Urine Blood Negative Urine Nitrate Negative Urine Bilirubin Negative Urine Urobilinogen Normal Ur Leukocyte Esterase Neg Urine WBC (Auto) < 1 Urine RBC (Auto) < 1 Ur Squamous Epith Cells < 1
--- NOTE | 2018-10-29 22:03 | CP.PCM.CON ---
History of Present Illness - History of Present Illness History of Present Illness: Surgery Consult: Dr. Black Pt is a 63F with PMHx significant for hidradenitis with multiple gluteal abscesses who presents to with complaints of left gluteal abscess. Pt states she noted a bump on her left buttock a few days ago which started getting bigger. She reports the area getting swollen and painful to touch. Pt reports having similar complaints in the past and states her last episode was 3 yrs ago when the abscess had to be drained. In the ER, pt had a CT pelvis which shows left gluteal cellulitis. Surgery acevedo d to evaluate. Pt states since admission her abscess has started to drain spontaneously and she reports purulent discharge. Denies nausea/vomiting, fevers/chills, chest pain or SOB. Review of Systems - Review of Systems All systems: reviewed and no additional remarkable complaints except (as per HPI) Past Patient History - Past Medical History & Family History Past Medical History?: No - Past Social History Smoking Status: Light Smoker < 10 Cigarettes Daily - CARDIAC Hx Hypertension: No - PULMONARY Hx Respiratory Disorders: No - NEUROLOGICAL Hx Neurological Disorder: No - HEENT Hx HEENT Problems: No - RENAL Hx Chronic Kidney Disease: No - ENDOCRINE/METABOLIC Hx Endocrine Disorders: No - HEMATOLOGICAL/ONCOLOGICAL Hx Anemia: Yes - INTEGUMENTARY Hx Dermatological Problems: Yes Other/Comment: hidradenitis - MUSCULOSKELETAL/RHEUMATOLOGICAL Hx Musculoskeletal Disorders: No Hx Falls: No - GASTROINTESTINAL Hx Gastrointestinal Disorders: No - GENITOURINARY/GYNECOLOGICAL Hx Genitourinary Disorders: No - PSYCHIATRIC Hx Psychophysiologic Disorder: No Hx Substance Use: No - SURGICAL HISTORY Hx Surgeries: Yes Other/Comment: HIDRADENITIS OPERATION ON VULVA - ANESTHESIA Hx Anesthesia: Yes Hx Anesthesia Reactions: No Hx Malignant Hyperthermia: No Meds Allergies/Adverse Reactions: Allergies Allergy/AdvReac Type Severity Reaction Status Date / Time sulfamethoxazole Allergy Verified 05/22/18 20:38 [From Bactrim] trimethoprim [From Bactrim] Allergy Verified 05/22/18 20:38 - Medications Medications: Current Medications Acetaminophen (Tylenol 325mg Tab) 650 mg PO Q6 PRN PRN Reason: Fever >100.4 F Heparin Sodium (Porcine) (Heparin) 5,000 units SC Q8 [facility] Last Admin: 10/29/18 14:36 Dose: 5,000 units Clindamycin Phosphate 900 mg/ (Sodium Chloride) 106 mls @ 106 mls/hr IVPB Q8H [facility]; Protocol Last Admin: 10/29/18 14:37 Dose: 106 mls/hr Sodium Chloride (Sodium Chloride 0.9%) 1,000 mls @ 100 mls/hr IV .Q10H [facility] Last Admin: 10/28/18 22:45 Dose: 100 mls/hr Physical Exam - Constitutional Appears: Well, No Acute Distress - Head Exam Head Exam: ATRAUMATIC, NORMOCEPHALIC - Eye Exam Eye Exam: Normal appearance - ENT Exam ENT Exam: Mucous Membranes Moist - Respiratory Exam Respiratory Exam: NORMAL BREATHING PATTERN - Cardiovascular Exam Cardiovascular Exam: RRR - GI/Abdominal Exam GI & Abdominal Exam: Soft. absent: Tenderness - Rectal Exam Additional comments: left gluteal abscess, tender to palpation. Surrounding erythema/induration noted. small area of fluctuance with purulent drainage - Neurological Exam Neurological exam: Alert, Oriented x3 - Skin Skin Exam: Dry, Warm Results - Vital Signs Recent Vital Signs: Last Vital Signs Temp 98.7 F 10/29/18 15:00 Pulse 87 10/29/18 15:00 Resp 20 10/29/18 15:00 BP 102/62 10/29/18 15:00 Pulse Ox 96 10/29/18 15:00 - Labs Result Diagrams: 10/29/18 08:29 10/29/18 08:29 Labs: Laboratory Results - last 24 hr 10/29/18 10/29/18 08:29 08:29 WBC 7.8 RBC 3.05 L Hgb 9.6 L Hct 28.8 L MCV 94.6 D MCH 31.5 H MCHC 33.4 RDW 15.6 H Plt Count 263 MPV 8.3 Neut % (Auto) 66.7 Lymph % (Auto) 18.2 L [place] % (Auto) 13.8 H Eos % (Auto) 0.5 Baso % (Auto) 0.8 Neut # (Auto) 5.2 Lymph # (Auto) 1.4 [place] # (Auto) 1.1 H Eos # (Auto) 0.0 Baso # (Auto) 0.1 Sodium 136 Potassium 5.0 Chloride 108 H Carbon Dioxide 18 L Anion Gap 15 BUN 48 H Creatinine 1.2 Est GFR ( Amer) 55 Est GFR (Non-Af Amer) 45 Random Glucose 88 Calcium 8.8 - Imaging and Cardiology CT scan - pelvis Status: Image reviewed by me, Report reviewed by me Assessment & Plan - Assessment and Plan (Free Text) Assessment: 63F with Left gluteal abscess Plan: - OR in AM for exam under anesthesia & I&D of abscess - keep NPO after midnight - cont ABx - d/w Dr. Sofia Sanz
[2018-10-30] MEDS: Sodium Chloride 0.9% 1,000 ML IV SCH ×2 (01:00→05:52)
--- NOTE | 2018-10-30 07:34 | HP ---
CHIEF COMPLAINT: Pain in the left buttock x1 week. HISTORY OF PRESENT ILLNESS: This is a 63-year-old female with history of prior perianal abscess, and she denies any history of prior medical problems. She is not on any medication. She is not under any kind of treatment in her usual status. Apparently, she is ambulatory and independent in activities of daily living. A week ago she started having left perianal pain, redness, swelling, body aches, fever, and she did not seek any medical attention, and she went to emergency room and she was admitted. There is no history of cough, congestion, sore throat, chest pain, nausea, vomiting, history of polyuria, polydipsia, or polyphagia. PAST MEDICAL HISTORY: Nothing significant. SOCIAL HISTORY: Nonsmoker. Non-ETOH abuser. CURRENT MEDICATIONS: None. PHYSICAL EXAMINATION: GENERAL: Elderly female, not in any acute cardiopulmonary distress. VITAL SIGNS: Blood pressure 102/62, pulse 57, respiratory rate 20, temperature 98.7. SKIN: Left perianal abscess with tenderness. HEENT: Atraumatic and normocephalic. Negative pallor. Negative jaundice. Extraocular movements are intact. NECK: Supple. No JVD. No lymph node or thyromegaly. CHEST: Chest wall bilateral symmetrical extension. No tenderness. No guarding. LUNGS: Bilaterally clear. No rales. No rhonchi. CVS: PMI, not localized. S1 and S2 regular. ABDOMEN: Soft and nontender. Bowel sounds are positive. RECTAL: Negative. PELVIC: Negative. EXTREMITIES: No clubbing, cyanosis, or edema. SKIN: Left buttock has a 4 x 5 cm abscess, which is tender. PACK ROOM OPERATOR: Normal. ASSESSMENT: Perianal abscess. PLAN: Admit, detailed orders written, seen and examined. Chadd Jack MD
[2018-10-30 08:26] LABS: BASO # 0.1 K/uL (0.0-0.2); BASO % 1.1 % (0.0-2.0); EOS # 0.1 K/uL (0.0-0.7); EOS % 2.1 % (0.0-4.0); LYMPH # 1.5 K/uL (1.0-4.3); LYMPH % 28.5 % (20.0-40.0); MEAN CELL VOLUME 94.6 fL (81.0-99.0); MEAN CORPUSCULAR HEMOGLOBIN 30.9 pg (27.0-31.0); MEAN CORPUSCULAR HGB CONC 32.7 g/dL (33.0-37.0); MEAN PLATELET VOLUME 8.1 fL (7.2-11.7); MONO # 0.5 K/uL (0.0-0.8); MONO % 9.8 % (0.0-10.0); NEUT # 3.1 K/uL (1.8-7.0); NEUT % 58.5 % (50.0-75.0); RBC 2.91 Mil/uL (3.80-5.20); RED CELL DISTRIBUTION WIDTH 15.5 % (11.5-14.5); WHITE BLOOD COUNT 5.3 K/uL (4.8-10.8)
[2018-10-30 08:35] LABS: PROTHROMBIN TIME 11.2 SECONDS (9.7-12.2)
[2018-10-30 08:40] LABS: BLOOD UREA NITROGEN 29 mg/dL (7-17); CALCIUM 8.7 mg/dl (8.6-10.4); GFR NON-AFRICAN AMERICAN 50
--- NOTE | 2018-10-30 08:54 | RAD ---
Date of service: 10/29/2018 HISTORY: pre-op COMPARISON: Chest radiographs 05/22/2018. FINDINGS: LUNGS: Increased linear atelectasis or fibrosis mid left lung zone laterally. No acute infiltrate bilaterally. PLEURA: No significant pleural effusion identified, no pneumothorax apparent. CARDIOVASCULAR: No aortic atherosclerotic calcification present. Normal cardiac size. No pulmonary vascular congestion. OSSEOUS STRUCTURES: No significant abnormalities. VISUALIZED UPPER ABDOMEN: Normal. OTHER FINDINGS: None. IMPRESSION: Limited increased linear atelectasis or fibrosis mid left lung zone laterally. No potential acute pulmonary findings otherwise. No interval cardiovascular disease appreciable.
[2018-10-30] MEDS ORDERED: Bupivacaine 0.25% 20 ML INJ IJ ONE (11:13)
[2018-10-30] MEDS ORDERED: Lidocaine/Epinephrine 1% 1:100000 10 ML IJ ONE (11:14)
[2018-10-30] MEDS ORDERED: ceFAZolin 1 gm in NS 0 GM/0 ML BAG IVPB ONE (11:15)
[2018-10-30] MEDS ORDERED: Propofol 10 mg/ml Inj (20 ML) ONE (11:52)
[2018-10-30] MEDS ORDERED: Midazolam 2 MG/2 ML VIAL ONE (11:52)
[2018-10-30] MEDS ORDERED: Lactated Ringer's 1,000 ML IV SCH (12:30)
--- NOTE | 2018-10-30 12:40 | PCM.SURG1 ---
Surgeon's Initial Post Op Note - Surgeon's Notes Surgeon: Dr. Black Service Tester: Radha PGY2; Parvez MS3 Type of Anesthesia: IV Sedation, Local Anesthesia Administered By: Sabine Penn Pre-Operative Diagnosis: Gluteal Abscess Operative Findings: See operative report Post-Operative Diagnosis: Pilonidal Cyst Abscess Operation Performed: Pilonydal Cyst Abscess incision, drainage and debridement Specimen/Specimens Removed: Wound culture; Tissue Specimen with tissue culture Estimated Blood Loss: EBL {In ML}: 10 Blood Products Given: N/A Drains Used: No Drains Post-Op Condition: Good Date of Surgery/Procedure: 10/30/18 Time of Surgery/Procedure: 12:40
[2018-10-30] MEDS ORDERED: Oxycodone/Acetaminophen 5/325 mg Tab PO PRN (12:42)
[2018-10-30 16:36] VITALS: RESP 20; O2SAT 97
--- NOTE | 2018-10-30 18:07 | CARD ---
APPROVED REPORT Date of service: 10/29/2018 EKG Measurement Heart [id number] ID [id number] <Conclusion> Normal sinus rhythm Possible old Septal infarct, age undetermined Abnormal ECG
--- NOTE | 2018-10-30 22:32 | CP.PCM.PN ---
Subjective - Subjective Subjective: dictated Objective - Vital Signs/Intake and Output Vital Signs (last 24 hours): Temp Pulse Resp BP Pulse Ox 97.7 F 77 20 106/63 97 10/30/18 16:00 10/30/18 16:00 10/30/18 16:00 10/30/18 16:00 10/30/18 16:00 Intake and Output: 10/30/18 12 18:59 06:59 Intake Total 200 Balance 200 - Medications Medications: Current Medications Acetaminophen (Tylenol 325mg Tab) 650 mg PO Q6 PRN PRN Reason: Fever >100.4 F Heparin Sodium (Porcine) (Heparin) 5,000 units SC Q8 [facility] Last Admin: 10/30/18 05:51 Dose: 5,000 units Clindamycin Phosphate 900 mg/ (Sodium Chloride) 106 mls @ 106 mls/hr IVPB Q8H [facility]; Protocol Last Admin: 10/30/18 14:32 Dose: 106 mls/hr Sodium Chloride (Sodium Chloride 0.9%) 1,000 mls @ 100 mls/hr IV .Q10H [facility] Last Admin: 10/30/18 05:52 Dose: Not Given Lactated Ringer's (Lactated Ringer's) 1,000 mls @ 100 mls/hr IV .Q10H [facility] Oxycodone/Acetaminophen (Percocet 5/325 Mg Tab) 1 tab PO Q6H PRN PRN Reason: Pain, moderate (4-7) Stop: 11/02/18 12:43 - Labs Labs: 10/30/18 08:23 10/30/18 08:23 PT 11.2 SECONDS (9.7-12.2) 10/30/18 08:23 INR 1.0 10/30/18 08:23 APTT 45 SECONDS (21-34) H 10/30/18 08:23
--- NOTE | 2018-10-31 03:20 | OP ---
PROCEDURE DATE: 10/30/2018 PREOPERATIVE DIAGNOSIS: Gluteal abscess. POSTOPERATIVE DIAGNOSIS: Pilonidal cyst abscess with cellulitis. PROCEDURES DONE: 1. Incision and drainage of pilonidal cyst abscess. 2. Excisional debridement of abscess cavity. SURGEON: Edis Black MD. HOT BLASTER: Maco Garcia DO., PGY2 resident. ANESTHESIA: General endotracheal tube anesthesia. ESTIMATED BLOOD LOSS: Around 10 mL. DRAINS: None. PATHOLOGY: First and the debrided tissue was sent for the culture and sensitivity and pathology. INTRAOPERATIVE FINDINGS: The patient had large, approximately 5 x 4 cm pilonidal cyst abscess extending into the gluteal area and the patient also had cellulitis. DESCRIPTION OF PROCEDURE: On intraoperative step, this 63-year-old female was diagnosed with recurrent abscess on the gluteal region and patient was consented for the I and D, brought to the OR and placed supine on the operating table. After induction of anesthesia, the gluteal area was prepped and draped in usual sterile fashion. The patient found to have abscess close to pilonidal cyst area and local anesthesia was injected and the cruciate type incision was made. Approximately 20 to 30 mL of pus was drained and abscess cavity was debrided with blunt and sharp dissection, and all the necrosed tissue was debrided. The wound was irrigated. Hemostasis was achieved and after that the wound was packed with Iodoform packing and dry sterile dressing was applied. The patient tolerated the procedure well. Count of instrument and gauze was correct. There was no apparent complication. The patient was reversed from sedation in the OR, sent to the postanesthesia care unit in stable condition. Edis Black MD
--- NOTE | 2018-10-31 04:04 | PN ---
DATE: 10/30/2018 SUBJECTIVE: The patient is status post incision and damage. The patient is afebrile. No shortness of breath, on antibiotics. PHYSICAL EXAMINATION: VITAL SIGNS: Blood pressure 106/63, pulse 77, respiratory rate 20, and temperature 97. LUNGS: Clear. CARDIOVASCULAR SYSTEM: S1 and S2, regular. ABDOMEN: Soft. ASSESSMENT: 1. Gluteal abscess, status post incision and drainage. 2. Anemia. PLAN: Continue antibiotics. Possible discharge in a.m. Chadd Jack MD
[2018-10-31 08:27] VITALS: PULSE 77; TEMP 98.3
--- NOTE | 2018-10-31 10:36 | CP.PCM.PN ---
Subjective - Date & Time of Evaluation Date of Evaluation: 10/31/18 Time of Evaluation: 06:30 - Subjective Subjective: General Surgery Pt seen and examined. No issues overnight. L gluteus top dyeing machine tender. Pt wants to go home. Objective - Vital Signs/Intake and Output Vital Signs (last 24 hours): Temp Pulse Resp BP Pulse Ox 98.3 F 77 20 123/69 97 10/31/18 08:26 10/31/18 08:26 10/31/18 08:26 10/31/18 08:26 10/31/18 08:26 Intake and Output: 10/31/18 10/31/18 06:59 18:59 Intake Total 1706 Output Total 1 Balance 1705 - Medications Medications: Current Medications Acetaminophen (Tylenol 325mg Tab) 650 mg PO Q6 PRN PRN Reason: Fever >100.4 F Heparin Sodium (Porcine) (Heparin) 5,000 units SC Q8 [facility] Last Admin: 10/30/18 05:51 Dose: 5,000 units Clindamycin Phosphate 900 mg/ (Sodium Chloride) 106 mls @ 106 mls/hr IVPB Q8H [facility]; Protocol Last Admin: 10/31/18 05:49 Dose: 106 mls/hr Sodium Chloride (Sodium Chloride 0.9%) 1,000 mls @ 100 mls/hr IV .Q10H [facility] Last Admin: 10/30/18 05:52 Dose: Not Given Lactated Ringer's (Lactated Ringer's) 1,000 mls @ 100 mls/hr IV .Q10H [facility] Last Admin: 10/30/18 23:03 Dose: 100 mls/hr Oxycodone/Acetaminophen (Percocet 5/325 Mg Tab) 1 tab PO Q6H PRN PRN Reason: Pain, moderate (4-7) Stop: 11/02/18 12:43 - Labs Labs: 10/30/18 08:23 10/30/18 08:23 PT 11.2 SECONDS (9.7-12.2) 10/30/18 08:23 INR 1.0 10/30/18 08:23 APTT 45 SECONDS (21-34) H 10/30/18 08:23 - Constitutional Appears: Non-toxic, No Acute Distress - Head Exam Head Exam: ATRAUMATIC, NORMOCEPHALIC - Eye Exam Eye Exam: EOMI. absent: Scleral icterus - Respiratory Exam Respiratory Exam: NORMAL BREATHING PATTERN. absent: Respiratory Distress - GI/Abdominal Exam GI & Abdominal Exam: Soft. absent: Distended, Tenderness - Rectal Exam Additional comments: Left gluteal incision with decreased TTP and without purulent drainage. removed packing, placed clean dressing - Neurological Exam Neurological Exam: Alert, Awake, Oriented x3 - Skin Skin Exam: Dry, Warm Assessment and Plan - Assessment and Plan (Free Text) Assessment: 63F POD#1 s/p Left gluteal abscess I&D Plan: Ok for DC from surgical standpoint. DC on 1 week flagyl Follow up in office in 1-2 weeks Call for fever more than 101 Ok to shower, wash area with soap and water, pat dry, and apply new dressing after Regular diet D/W Dr. Sofia Bowles PGY4
--- NOTE | 2018-10-31 11:25 | CP.PCM.PN ---
Subjective - Date & Time of Evaluation Date of Evaluation: 10/31/18 Time of Evaluation: 11:20 - Subjective Subjective: Patient seen today, denies any complaints a febrile labs and vss reviewed- stable Objective - Vital Signs/Intake and Output Vital Signs (last 24 hours): Temp Pulse Resp BP Pulse Ox 98.3 F 77 20 123/69 97 10/31/18 08:26 10/31/18 08:26 10/31/18 08:26 10/31/18 08:26 10/31/18 08:26 Intake and Output: 10/31/18 10/31/18 06:59 18:59 Intake Total 1706 Output Total 1 Balance 1705 - Medications Medications: Current Medications Acetaminophen (Tylenol 325mg Tab) 650 mg PO Q6 PRN PRN Reason: Fever >100.4 F Heparin Sodium (Porcine) (Heparin) 5,000 units SC Q8 [facility] Last Admin: 10/30/18 05:51 Dose: 5,000 units Clindamycin Phosphate 900 mg/ (Sodium Chloride) 106 mls @ 106 mls/hr IVPB Q8H [facility]; Protocol Last Admin: 10/31/18 05:49 Dose: 106 mls/hr Sodium Chloride (Sodium Chloride 0.9%) 1,000 mls @ 100 mls/hr IV .Q10H [facility] Last Admin: 10/30/18 05:52 Dose: Not Given Lactated Ringer's (Lactated Ringer's) 1,000 mls @ 100 mls/hr IV .Q10H [facility] Last Admin: 10/30/18 23:03 Dose: 100 mls/hr Oxycodone/Acetaminophen (Percocet 5/325 Mg Tab) 1 tab PO Q6H PRN PRN Reason: Pain, moderate (4-7) Stop: 11/02/18 12:43 - Labs Labs: 10/30/18 08:23 10/30/18 08:23 PT 11.2 SECONDS (9.7-12.2) 10/30/18 08:23 INR 1.0 10/30/18 08:23 APTT 45 SECONDS (21-34) H 10/30/18 08:23 Assessment and Plan - Assessment and Plan (Free Text) Assessment: 63F admitted with painful abscess to the left buttock POD#1 s/p Left gluteal abscess I&D seen by surgery team today and Ok for DC from surgical standpoint. continue with 1 week flagyl and augmentin Follow up in office in 1-2 weeks Call for fever more than 101 Ok to shower, wash area with soap and water, pat dry, and apply new dressing after D/w Dr. Jack cleared for discharge home today and f/u with Dr. Jack office in 1 week discharge plan discussed with patient who understands and agrees with plan
[2018-10-31 16:31] VITALS: BP 132/77
--- NOTE | 2018-10-31 22:50 | CP.PCM.DIS ---
Provider - Provider Date of Admission: 10/28/18 22:32 Attending physician: Chadd Jack MD Consults: 10/29/18 15:53 General Surgery Consult Routine Comment: Consulting Provider: Edis Black Consulting Physician: Edis Black Reason for Consult: [facility] Course - Lab Results Lab Results: Micro Results 10/30/18 08:12 Other: Please Indicate Gram Stain - Final 10/28/18 23:00 Blood Blood Culture - Preliminary NO GROWTH AFTER 48 HOURS 10/28/18 22:45 Blood Blood Culture - Preliminary NO GROWTH AFTER 48 HOURS Most Recent Lab Values WBC 5.3 K/uL (4.8-10.8) 10/30/18 08:23 RBC 2.91 Mil/uL (3.80-5.20) L 10/30/18 08:23 Hgb 9.0 g/dL (11.0-16.0) L 10/30/18 08:23 Hct 27.5 % (34.0-47.0) L 10/30/18 08:23 MCV 94.6 fL (81.0-99.0) 10/30/18 08:23 MCH 30.9 pg (27.0-31.0) 10/30/18 08:23 MCHC 32.7 g/dL (33.0-37.0) L 10/30/18 08:23 RDW 15.5 % (11.5-14.5) H 10/30/18 08:23 Plt Count 253 K/uL (130-400) 10/30/18 08:23 MPV 8.1 fL (7.2-11.7) 10/30/18 08:23 Neut % (Auto) 58.5 % (50.0-75.0) 10/30/18 08:23 Lymph % (Auto) 28.5 % (20.0-40.0) 10/30/18 08:23 [place] % (Auto) 9.8 % (0.0-10.0) 10/30/18 08:23 Eos % (Auto) 2.1 % (0.0-4.0) 10/30/18 08:23 Baso % (Auto) 1.1 % (0.0-2.0) 10/30/18 08:23 Neut # (Auto) 3.1 K/uL (1.8-7.0) 10/30/18 08:23 Lymph # (Auto) 1.5 K/uL (1.0-4.3) 10/30/18 08:23 [place] # (Auto) 0.5 K/uL (0.0-0.8) 10/30/18 08:23 Eos # (Auto) 0.1 K/uL (0.0-0.7) 10/30/18 08:23 Baso # (Auto) 0.1 K/uL (0.0-0.2) 10/30/18 08:23 PT 11.2 SECONDS (9.7-12.2) 10/30/18 08:23 INR 1.0 10/30/18 08:23 APTT 45 SECONDS (21-34) H 10/30/18 08:23 Sodium 136 mmol/L (132-148) 10/30/18 08:23 Potassium 4.3 mmol/L (3.6-5.2) 10/30/18 08:23 Chloride 108 mmol/L (98-107) H 10/30/18 08:23 Carbon Dioxide 21 mmol/L (22-30) L 10/30/18 08:23 Anion Gap 11 (10-20) 10/30/18 08:23 BUN 29 mg/dL (7-17) H 10/30/18 08:23 Creatinine 1.1 mg/dL (0.7-1.2) 10/30/18 08:23 Est GFR ( Amer) > 60 10/30/18 08:23 Est GFR (Non-Af Amer) 50 10/30/18 08:23 Random Glucose 86 mg/dL (65-105) 10/30/18 08:23 Calcium 8.7 mg/dl (8.6-10.4) 10/30/18 08:23 Total Bilirubin 0.4 mg/dL (0.2-1.3) 10/28/18 17:04 AST 45 U/L (14-36) H D 10/28/18 17:04 ALT 26 U/L (9-52) 10/28/18 17:04 Alkaline Phosphatase 121 U/L (38-126) 10/28/18 17:04 Total Protein 8.6 g/dL (6.3-8.3) H 10/28/18 17:04 Albumin 4.3 g/dL (3.5-5.0) 10/28/18 17:04 Globulin 4.2 gm/dL (2.2-3.9) H 10/28/18 17:04 Albumin/Globulin Ratio 1.0 (1.0-2.1) 10/28/18 17:04 Urine Color Straw (YELLOW) 10/28/18 20:16 Urine Clarity Clear (Clear) 10/28/18 20:16 Urine pH 5.0 (5.0-8.0) 10/28/18 20:16 Ur Specific [place] 1.006 (1.003-1.030) 10/28/18 20:16 Urine Protein Negative mg/dL (NEGATIVE) 10/28/18 20:16 Urine Glucose (UA) Normal mg/dL (Normal) 10/28/18 20:16 Urine Ketones Negative mg/dL (NEGATIVE) 10/28/18 20:16 Urine Blood Negative (NEGATIVE) 10/28/18 20:16 Urine Nitrate Negative (NEGATIVE) 10/28/18 20:16 Urine Bilirubin Negative (NEGATIVE) 10/28/18 20:16 Urine Urobilinogen Normal mg/dL (0.2-1.0) 10/28/18 20:16 Ur Leukocyte Esterase Neg [place]/uL (Negative) 10/28/18 20:16 Urine WBC (Auto) < 1 /hpf (0-5) 10/28/18 20:16 Urine RBC (Auto) < 1 /hpf (0-3) 10/28/18 20:16 Ur Squamous Epith Cells < 1 /hpf (0-5) 10/28/18 20:16 Discharge Exam - Head Exam Head Exam: ATRAUMATIC, NORMOCEPHALIC Discharge Plan - Discharge Medications Prescriptions: Amoxicillin/Potassium Clav [Augmentin 500-125 Tablet] 1 each PO Q12 #14 tablet Metronidazole [Flagyl] 500 mg PO Q8 #21 tablet - Follow Up Plan Condition: STABLE Disposition: HOME/ ROUTINE Instructions: Dehydration, Adult (DC), Metronidazole (Systemic), Acute Kidney Failure (DC), Cellulitis (Skin Infection), Adult (DC), Amoxicillin and Clavulanate, Wound Incision and Drainage (DC), Normocytic Normochromic Anemia (DC) Additional Instructions: Please follow up with Dr. Jack office in week( follow up visit) Please follow up with Dr. Black office in 1-2 week - call and make appointment Continue medication as per med. rec. Continue antibiotics for 7 days Follow up in office in 1-2 weeks Call for fever more than 101 Ok to shower, wash area with soap and water, pat dry, and apply new dressing after Regular diet Referrals: Chadd Jack MD [Staff Provider] - Edis Black MD [Staff Provider] -
--- NOTE | 2018-11-01 08:10 | DS ---
DISCHARGE DIAGNOSIS: Perianal abscess. HISTORY OF PRESENT ILLNESS: This is a 63-year-old -[place] female with no significant past medical history, came in because of perianal abscess. Incision and drainage was done and the patient was discharged home on Augmentin. CONDITION UPON DISCHARGE: Stable. PHYSICAL EXAMINATION: VITAL SIGNS: Blood pressure 132/77, pulse 77, respiratory rate 20, temperature 98.3. LUNGS: Clear. CARDIOVASCULAR SYSTEM: S1 and S2, regular. ABDOMEN: Soft. ASSESSMENT: 1. Perianal abscess. 2. Anemia. PLAN: Discharge patient. Chadd Jack MD
== END 2018-10-31 16:29 | disposition home or self-care (01) | DRG 603 ==
LOC: C.ER 15:53 → C.9E 22:32 → C.6T 23:04
PROVIDERS: ADMIT Internal Medicine; ATTEND Internal Medicine
PROC: 0H98XZX Drainage of Buttock Skin, External Approach, Diagnostic (ICD-10-PCS; principal; 2018-10-30 16:00)
PROC: 0HB8XZZ Excision of Buttock Skin, External Approach (ICD-10-PCS; 2018-10-30 16:00)
DX: L05.01 Pilonidal cyst with abscess (principal); K61.2 Anorectal abscess; L03.317 Cellulitis of buttock; N17.9 Acute kidney failure, unspecified; I10 Essential (primary) hypertension; E86.0 Dehydration; D64.9 Anemia, unspecified; F17.210 Nicotine dependence, cigarettes, uncomplicated; L73.2 Hidradenitis suppurativa